=== PATIENT | male | born 1960 | race Caucasian/White ===

== ENCOUNTER 2017-09-04 11:59 | Emergency (ER) | payer OTHER ==
[2017-09-04 12:08] VITALS: TEMP 98.6; O2SAT 96
--- NOTE | 2017-09-04 12:41 | CPEKG ---
Heart Rate: 106 RR Interval: 566 P-R Interval: 204 QRSD Interval: 86 QT Interval: 340 QTC Interval: 452 P [place]: 31 QRS [place]: -4 T Wave [place]: 5 EKG Severity - OTHERWISE NORMAL ECG - EKG Impression: SINUS TACHYCARDIA Electronically Signed By: Antwon Perea 04-Sep-2017 21:14:11
[2017-09-04 13:08] VITALS: RESP 19
[2017-09-04] MEDS ORDERED: LORazepam 2 MG/ML INJ IVP ONE (13:10)
[2017-09-04 13:15] LABS: % IMMATURE GRANULYOCYTES 0.5 % (0.0-1.1); ABSOLUTE IMMATURE GRANULOCYTES 0.03 10^3/uL (0.00-0.10); ADD DIFF? NO; ADD MORPH? NO; ADD SCAN? NO; ATYPICAL LYMPHOCYTE FLAG 0 (0-99); FRAGMENT RBC FLAG 0 (0-99); HEMATOCRIT 45.3 % (40.0-51.0); HEMOGLOBIN 15.5 g/dL (13.7-17.5); LEFT SHIFT FLG 0 (0-99); LIPEMIA HEMOLYSIS FLAG 90 (0-99); MEAN CELL HEMOGLOBIN 32.2 pg (27.9-34.1); MEAN CELL HEMOGLOBIN CONCENTR. 34.2 g/dL (32.4-36.7); MEAN PLATELET VOLUME 9.8 fL (8.7-11.7); PLATELET CLUMPS FLAG 0 (0-99); PLATELET COUNT 196 10^3/uL (150-400); RED BLOOD CELL COUNT 4.82 10^6/uL (4.40-6.38); RED CELL DISTRIBUTION WIDTH 12.1 % (11.5-15.2)
[2017-09-04 13:22] LABS: ANION GAP 13 mEq/L (8-16); CALCIUM 10.1 mg/dL (8.5-10.4); CARBON DIOXIDE 24 mEq/l (22-31); CHLORIDE 104 mEq/L (97-110); CREATININE 0.9 mg/dL (0.7-1.3); GLOMERULAR FILTRATION RATE > 60; GLUCOSE 124 mg/dL (70-100); POTASSIUM 4.3 mEq/L (3.5-5.2); SODIUM 141 mEq/L (134-144)
--- NOTE | 2017-09-04 13:23 | EDPHY ---
H & P Stated Complaint: tachycardia/anxious/tremors Time Seen by Provider: 09/04/17 13:01 HPI/ROS: CHIEF COMPLAINT: Tachycardia, tremulous, anxious HISTORY OF PRESENT ILLNESS: The patient presents to the ED with complaints of tachycardia, feeling tremulous and anxious secondary to stress at work. The patient reports he has been functioning under a deadline. Today while driving to work he developed tachycardia, mild diffuse sweating and a feeling of anxiety. The patient has no prior history of the symptoms. The patient denies chest pain or shortness of breath. He denies any headache, numbness or weakness. The patient denies significant past medical history. The patient denies recent the additional infectious symptoms or acute complaints. REVIEW OF SYSTEMS: A comprehensive 10 point review of systems is otherwise negative aside from elements mentioned in the history of present illness. Source: Patient Exam Limitations: No limitations - Personal History Current Tetanus/Diphtheria Vaccine: Yes - Medical/Surgical History Hx Asthma: No Hx Chronic Respiratory Disease: No Hx Diabetes: No Hx Cardiac Disease: No Hx Renal Disease: No Hx Cirrhosis: No Hx Alcoholism: No Hx HIV/AIDS: No Hx Splenectomy or Spleen Trauma: No Other PMH: denies - Social History Smoking Status: Never smoked - Physical Exam Exam: General Appearance: Alert, no distress Eyes: Pupils equal and round no pallor or injection ENT, Mouth: Mucous membranes moist Respiratory: There are no retractions, lungs are clear to auscultation Cardiovascular: Tachycardic Gastrointestinal: Abdomen is soft and nontender, no masses, bowel sounds normal Neurological: A&O, normal motor function, normal sensory exam, normal cranial nerves Skin: Warm and dry, no rashes Musculoskeletal: Neck is supple nontender Extremities: symmetrical, full range of motion Constitutional: Initial Vital Signs Temperature (C) 37 C 09/04/17 12:02 Heart Rate 127 H 09/04/17 12:02 Respiratory Rate 22 H 09/04/17 12:02 Blood Pressure 177/118 H 09/04/17 12:02 O2 Sat (%) 96 09/04/17 12:02 O2 Delivery Mode Room Air Allergies/Adverse Reactions: No Known Allergies Allergy (Unverified 09/04/17 12:01) Home Medications: Medication Instructions Recorded Aspirin 81mg (*) 09/04/17 Medical Decision Making - Diagnostics EKG Interpretation: EKG: Complete interpretation has been separately recorded in the [employer] archive. Summary impression: Sinus tachycardia, rate 106 ED Course/Re-evaluation: The patient presents to the ED with situational anxiety. The patient did arrive with tachycardia and a general sensation of anxiety. The patient was offered a half a mg of Ativan which she accepted. The patient has no prior cardiac history. The patient's blood pressure and heart rate did decrease in the emergency department. His EKG demonstrates no evidence of ischemia. The patient's troponin is normal. The patient's CBC and Chem 7 are also within normal limits. The patient has no risk factors for cardiac disease. The patient is feeling much better. I have discussed with the diagnosis of anxiety. The patient does understand return to the ED for any protracted chest pain or shortness of breath. The patient can follow up with his primary care provider to discuss his ongoing symptoms. Differential Diagnosis: Differential diagnosis considered includes acute coronary syndrome, tachycardia , AFib, anxiety, dehydration, metabolic abnormality - Data Points Laboratory Results: Laboratory Results 09/04/17 12:41 09/04/17 12:41 09/04/17 09/04/17 12:41 12:41 WBC 6.62 10^3/uL 10^3/uL (3.80-9.50) RBC 4.82 10^6/uL 10^6/uL (4.40-6.38) Hgb 15.5 g/dL g/dL (13.7-17.5) Hct 45.3 % % (40.0-51.0) MCV 94.0 fL fL (81.5-99.8) MCH 32.2 pg pg (27.9-34.1) MCHC 34.2 g/dL g/dL (32.4-36.7) RDW 12.1 % % (11.5-15.2) Plt Count 196 10^3/uL 10^3/uL (150-400) MPV 9.8 fL fL (8.7-11.7) Neut % (Auto) 74.5 % H % (39.3-74.2) Lymph % (Auto) 18.9 % % (15.0-45.0) [place] % (Auto) 4.7 % % (4.5-13.0) Eos % (Auto) 0.9 % % (0.6-7.6) Baso % (Auto) 0.5 % % (0.3-1.7) Nucleat RBC Rel Count 0.0 % % (0.0-0.2) Absolute Neuts (auto) 4.94 10^3/uL 10^3/uL (1.70-6.50) Absolute Lymphs (auto) 1.25 10^3/uL 10^3/uL (1.00-3.00) Absolute Monos (auto) 0.31 10^3/uL 10^3/uL (0.30-0.80) Absolute Eos (auto) 0.06 10^3/uL 10^3/uL (0.03-0.40) Absolute Basos (auto) 0.03 10^3/uL 10^3/uL (0.02-0.10) Absolute Nucleated RBC 0.00 10^3/uL 10^3/uL (0-0.01) Immature Gran % 0.5 % % (0.0-1.1) Immature Gran # 0.03 10^3/uL 10^3/uL (0.00-0.10) Sodium 141 mEq/L mEq/L (134-144) Potassium 4.3 mEq/L mEq/L (3.5-5.2) Chloride 104 mEq/L mEq/L (97-110) Carbon Dioxide 24 mEq/l mEq/l (22-31) Anion Gap 13 mEq/L mEq/L (8-16) BUN 18 mg/dL mg/dL (7-23) Creatinine 0.9 mg/dL mg/dL (0.7-1.3) Estimated GFR > 60 Glucose 124 mg/dL H mg/dL (70-100) Calcium 10.1 mg/dL mg/dL (8.5-10.4) Troponin I < 0.012 ng/mL ng/mL (0.000-0.034) Medications Given: Discontinued Medications Lorazepam (Ativan Injection) 0.5 mg IVP EDNOW ONE Stop: 09/04/17 13:11 Last Admin: 09/04/17 13:17 Dose: 0.5 mg Departure - Departure Disposition: Home, Routine, Self-Care Clinical Impression: Palpitations Condition: Good Instructions: Palpitations (ED) Additional Instructions: 1. I believe your symptoms today are secondary to mild anxiety. Your EKG and laboratory testing is within normal limits. You have been given the number of our on-call water plumber to schedule a follow-up appointment for any ongoing symptoms. 2. Please return to the ED immediately for any chest pain, shortness of breath, headache, numbness or weakness. 3. Please follow up with your primary care provider as needed. Referrals: Rufino Howard MD [Primary Care Provider] - As per Instructions Roc Brunner MD [Medical Doctor] - As per Instructions
[2017-09-04 13:33] LABS: TROPONIN I < 0.012 ng/mL (0.000-0.034)
[2017-09-04 14:37] VITALS: BP 152/108; PULSE 89
== END 2017-09-04 14:37 | disposition home or self-care (01) ==
DX: R00.2 Palpitations (principal); Z79.82 Long term (current) use of aspirin
CPT/HCPCS: 96374; J2060